=== PATIENT | female | born 1945 | race Caucasian/White ===

== ENCOUNTER 2023-10-07 07:38 | Outpatient (CLI) | payer BC | END 2023-10-07 23:59 | disposition home or self-care (01) | LOC: MRI 07:38 | PROVIDERS: ATTEND Physician Assistant Surgical | DX: M17.0 Bilateral primary osteoarthritis of knee (principal); S82.831A Other fracture of upper and lower end of right fibula, initial encounter for closed fracture; M25.561 Pain in right knee; M25.562 Pain in left knee; M25.571 Pain in right ankle and joints of right foot; X58.XXXA Exposure to other specified factors, initial encounter; Y93.89 Activity, other specified; Y92.89 Other specified places as the place of occurrence of the external cause; Y99.8 Other external cause status | CPT/HCPCS: 73721 ==